=== PATIENT | male | born 1985 | race Caucasian/White ===

== ENCOUNTER 2016-12-12 21:54 | Emergency (ER) | payer OTHER ==
--- NOTE | 2016-12-12 22:12 | EDPHY ---
H & P HPI/ROS: HPI CHIEF COMPLAINT: Right ear pain, recent upper respiratory tract infection HISTORY OF PRESENT ILLNESS: This patient very pleasant 31-year-old male significant past medical history for cyclic vomiting syndrome, and chronic idiopathic pancreatitis, presents emergency room with right ear pain. Patient states he was seen by his primary care doctor today and given Ciprodex drops however continues to have throbbing pulsating right ear pain. The pain is rather severe. No fever. States recently he had a flu-like illness with upper respiratory tract infection with a sore throat, congestion. Yesterday around 2: 00 a.m. he developed right ear pain it began this started itching took a Q-tip gently to the outside of the ear however the pain started persistent. He went saw his doctor today given antibiotic. Presents emergency room at 10 o'clock at night with worsening right ear pain throbbing in nature. No fever. No neck pain. No trouble swallowing. No headache. Pain is described as throbbing pulsating right ear. No drainage from his ear. Denies trauma. Past Medical History: Cyclic vomiting syndrome, chronic idiopathic pancreatitis Past Surgical History: No recent surgery Social History: Denies daily use drugs alcohol tobacco products Family History: Noncontributory ROS REVIEW OF SYSTEMS: A comprehensive 10 point review of systems is otherwise negative aside from elements mentioned in the history of present illness. Exam Constitutional triage nursing summary reviewed, vital signs reviewed, awake/ alert. Eyes normal conjunctivae and sclera, EOMI, PERRLA. HENT left TM normal, right TM bulging erythematous, fluid filled behind it, ear canal normal, there is some right submandibular lymphadenopathy with mild tenderness palpation, no periauricular lymphadenopathy, no signs of Lui's, normal posterior pharynx, no carotid bruit, moist mucus membranes, no epistaxis , neck supple/ no meningismus, no raccoon eyes. Respiratory clear to auscultation bilaterally, normal breath sounds, no respiratory distress, no wheezing. Cardiovascular rate normal, regular rhythm, no murmur, no edema, distal pulses normal. Gastrointestinal soft, non-tender, no rebound, no guarding, normal bowel sounds, no distension, no pulsatile mass. Genitourinary no CVA tenderness. Musculoskeletal no midline vertebral tenderness, full range of motion, no calf swelling, no tenderness of extremities, no meningismus, good pulses, neurovascularly intact. Skin pink, warm, & dry, no rash, skin atraumatic. Neurologic awake, alert and oriented x 3, AAOx3, moves all 4 extremities equally, motor intact, sensory intact, CN II-XII intact, normal cerebellar, normal vision, normal speech. Psychiatric normal mood/affect. Heme/Lymph/Immune no lymphadenopathy. Differential Diagnosis: Includes but is not limited to in a particular order, otitis media, upper respiratory tract infection, Lui's, doubt septic thrombophlebitis Medical Decision Making: Plan for this patient started on [place] for acute pain control, azithromycin orally as he has a penicillin and cephalosporin allergy. Follow up closely with ear nose and throat. Return emergency room if he has severe pain, vomiting, fever, headache or neck pain. He understands. Re-evaluation: 1st dose of [place] given in emergency room 1st dose of azithromycin. Prescription for [place] as the, return emergency room if there is any worsening symptoms questions or concerns he understands. Source: Patient - Medical/Surgical History Other PMH: chronic pancreatitis, cyclical vomiting, OCD - Social History Smoking Status: Light smoker Allergies/Adverse Reactions: Cephalosporins Allergy (Severe, Verified 12/12/16 22:13) Hives Penicillins Allergy (Severe, Verified 12/12/16 22:13) Hives, HARD TIME BREATHING Home Medications: Medication Instructions Recorded Amitriptyline 100 mg 06/28/15 Creon 12 (RX) 06/28/15 AZITHROMYCIN [Z-PACK] 250 mg PO DAILY #6 tab 12/12/16 Ciprofloxacin HCl/Dexameth 12/12/16 [Ciprodex Otic Suspension] Hydrocodone/APAP 5/325 [[place] 1 - 2 tab PO Q4H PRN #10 tab 12/12/16 5/325] Zoloft 50mg (*) 12/12/16 Departure - Departure Disposition: Home, Routine, Self-Care Clinical Impression: Otitis media Qualifiers: Otitis media type: suppurative Chronicity: acute Laterality: right Recurrence: not specified as recurrent Spontaneous tympanic membrane rupture: without spontaneous rupture Qualified Code(s): H66.001 - Acute suppurative otitis media without spontaneous rupture of ear drum, right ear Condition: Good Instructions: Otitis Media (ED) Additional Instructions: 1. Stay well-hydrated drink lots of fluids. 2. I do recommend that you take Mucinex DM. 3. Take [place] as needed for pain control. Please follow the prescription. No more than 1 pill every 4-6 hours. 4. Follow up with Ear Nose and Throat. 5. Complete your antibiotic as prescribed. 6. Return emergency room if you have any worsening symptoms questions or concerns. Referrals: Grace George MD [Primary Care Provider] - As per Instructions Dg Jauregui MD [Medical Doctor] - As per Instructions Prescriptions: AZITHROMYCIN [Z-PACK] 250 mg PO DAILY #6 tab Hydrocodone/APAP 5/325 [[place] 5/325] 1 - 2 tab PO Q4H PRN #10 tab PRN Reason: Pain, Moderate
[2016-12-12] MEDS ORDERED: AZITHROMYCIN 250 MG TAB PO ONE (22:19)
[2016-12-12] MEDS ORDERED: HYDROCODONE/APAP 10/325 TAB PO ONE (22:19)
[2016-12-12] MEDS ORDERED: HYDROCOD/APAP 5/325 PREPACK#6 BTL TAKEHOME ONE (22:19)
[2016-12-12 22:20] VITALS: BP 129/87; PULSE 74; RESP 16; TEMP 98.4; O2SAT 96
[2016-12-12] MEDS ORDERED: HYDROCODONE/APAP 5/325 TAB PO ONE (22:32)
== END 2016-12-12 22:45 | disposition home or self-care (01) ==
LOC: CED 21:54
DX: H66.001 Acute suppurative otitis media without spontaneous rupture of ear drum, right ear (principal); F17.200 Nicotine dependence, unspecified, uncomplicated